=== PATIENT | male | born 1980 | race Caucasian/White ===

== ENCOUNTER 2016-09-02 17:20 | Emergency (ER) | payer OTHER ==
--- NOTE | 2016-09-02 17:22 | EDPHY ---
H & P Time Seen by Provider: 09/02/16 17:22 - Medical/Surgical History Hx Asthma: No Hx Chronic Respiratory Disease: No Hx Diabetes: No Hx Cardiac Disease: No Hx Renal Disease: No Hx Cirrhosis: No Hx Alcoholism: No Hx HIV/AIDS: No Hx Splenectomy or Spleen Trauma: No Other PMH: med hx- low back pain,mitral valve regurg. surg-L5,prk., Tonsilectomy and adenoidectomy, R shoulder rotator cuff repair - Social History Smoking Status: Former smoker Constitutional: Initial Vital Signs Temperature (C) 36.6 C 09/02/16 17:21 Heart Rate 61 09/02/16 17:21 Respiratory Rate 16 09/02/16 17:21 Blood Pressure 148/103 H 09/02/16 17:21 O2 Sat (%) 96 09/02/16 17:21 O2 Delivery Mode Room Air Allergies/Adverse Reactions: No Known Allergies Allergy (Verified 01/25/16 11:19) Home Medications: Medication Instructions Recorded NK [No Known Home Meds] 09/02/16 Medical Decision Making ED Course/Re-evaluation: CHIEF COMPLAINT: Right shoulder injury HISTORY OF PRESENT ILLNESS: The patient is a 35 y/o male with a history of right rotator cuff surgery 9 months ago complaining of right shoulder pain after moving a patient at work today. He was lifting the head of a patient's bed when the patient suddenly leaned back quickly, pulling the patient's arm down abruptly while in the ED tonight. He had immediate tearing sensation and pain in his right anterior shoulder that is now radiating down his biceps. His ROM has remained normal. He denies weakness or paresthesias. No other injuries. REVIEW OF SYSTEMS: A 10 point review of systems was performed and is negative with the exception of the elements mentioned in the history of present illness. PHYSICAL EXAM: HR, BP, O2 Sat, RR. Temp noted General Appearance: Alert, well hydrated, appropriate, and non-toxic appearing. Musculoskeletal: Anterior right cuff pain with right shoulder ROM similar to previous. Other extremities have normal active ROM of all extremities and are atraumatic. Neurological: Alert, appropriate, and interactive. The patient has normal DTRs and non-focal cranial nerves, motor, sensory, and cerebellar exam. Skin: No rashes, good turgor, no nodules on palpation. Past medical history: Low back pain Past surgical history: Right rotator cuff repair 2016 Family history: Noncontributory Social history: [facility] ED RN DIAGNOSTICS/PROCEDURES/CRITICAL CARE TIME: Study: MRI of the: Right shoulder Indication: Trauma, pain, recent rotator cuff repair Results: MRI scan of the shoulder was obtained. The results of the study are edema and swelling around the cuff. Unable to visualize biceps head. Possible recurrent tear. The study was read by the radiologist, Dr. Cummings. I viewed the images myself on the PACS system. DIFFERENTIAL DIAGNOSIS: The differential diagnosis for the patient's pain included but was not limited to rotator cuff tear, biceps tear, shoulder strain , fracture. MEDICAL DECISION MAKING: This is a healthy 35 y/o male, with recent history of right rotator cuff repair , presenting with a work injury to his right shoulder. He was lifting the head of the bed when a heavy patient leaned back suddenly pulling the head of the bed down as well as the nurse's arm. He had immediate pain and tearing sensation , but ROM remained intact. He has some reproducible anterior cuff pain on exam. He is neurovascularly intact. Plan for shoulder MRI to evaluate rotator cuff. He declines narcotic pain medication. 800mg PO ibuprofen administered. Preliminary MRI read shows possible re-tear of the cuff with noticeable edema surrounding the area. I discussed the results with the patient. He will be discharged in a sling and referral to his orthopedist. He declines script for narcotic pain medication. I recommended regular ibuprofen over the next week. Return precautions given. He is comfortable with this plan. - Data Points Medications Given: Discontinued Medications Ibuprofen (Motrin) 600 mg PO ONCE ONE Stop: 09/02/16 17:27 Last Admin: 09/02/16 17:36 Dose: 600 mg Departure - Departure Disposition: Home, Routine, Self-Care Clinical Impression: Acute postoperative pain of right shoulder Rotator cuff tear, right Qualifiers: Qualifier Code: (M75.101) Unspecified rotator cuff tear or rupture of right shoulder, not specified as traumatic Condition: Good Instructions: Rotator Cuff Injury (ED) Additional Instructions: 1. Wear sling for comfort. 2. Use Tylenol and ibuprofen as directed on the packaging for pain and inflammation. 3. Follow up with Dr. Larson next week. 4. Return for worsening of condition. Referrals: Dariusz Larson MD [Medical Doctor] - As per Instructions Report Scribed for: Shaun Hammonds Report Scribed by: Bianka Harkins Date of Report: 09/02/16 Time of Report: 17:24
[2016-09-02 17:23] VITALS: BP 148/103; PULSE 61; RESP 16; TEMP 97.9; O2SAT 96
[2016-09-02] MEDS ORDERED: IBUPROFEN 600 MG TAB PO ONE (17:26)
--- NOTE | 2016-09-03 08:57 | MR ---
MRI of the Right Shoulder History: Prior right shoulder surgery, now with acute pain. Technique: Axial proton density, oblique coronal, and sagittal T1 and T2 images were acquired. Findings: Surgical features of decompressive acromioplasty, rotator cuff reconstruction, and long hea d biceps tenodesis are identified. The rotator cuff remains intact, with a small focal linear undersu rface partial-thickness tear identified at the confluence of supraspinatus and infraspinatus just pro ximal to the greater tuberosity (image 12, series 7). Underlying and adjacent tendinosis and peritend initis is present, without significant defect in the reconstruction. The infraspinatus more posterior ly is normal in appearance. Subscapularis is diffusely thinned distally without full-thickness defect . Teres minor is intact. The long head biceps tenodesis appears intact. Degenerative maceration and surface fraying of the superior labrum diffusely is noted, without linear tear or displacement. The remainder of the labrum is intact, and articular cartilage of the glenohum eral joint is intact. The acromioclavicular joint is mildly degenerative. Impression: 1. Postsurgical changes of rotator cuff reconstruction, long head biceps tenodesis, and decompressive acromioplasty. There is a small linear focal partial thickness undersurface tear of the distal cuff at confluence of infraspinatus and supraspinatus proximal to the greater tuberosity. No full-thicknes s defect or significant gap in the reconstructed rotator cuff identified. 2. Mild degenerative maceration and fraying superior labrum. 3. Acromioclavicular degenerative changes.
== END 2016-09-02 19:09 | disposition home or self-care (01) ==
DX: G89.18 Other acute postprocedural pain (principal); M75.101 Unspecified rotator cuff tear or rupture of right shoulder, not specified as traumatic; Z87.891 Personal history of nicotine dependence

== ENCOUNTER → 2018-04-04 | Outpatient (CLI) | payer OTHER | LOC: FIMAGING 10:45 | PROVIDERS: ATTEND Physical Medicine & Rehabilitation | DX: M25.812 Other specified joint disorders, left shoulder (principal) ==